=== PATIENT | female | born 1980 | race Two or more races ===

== ENCOUNTER 2020-05-19 11:47 | Outpatient (REF) | payer OTHER, SELFPAY | END 2020-05-19 11:48 | disposition home or self-care (01) | LOC: HO.LAB 11:47 | PROVIDERS: Visit Provider Internal Medicine | DX: Z20.828 Contact with and (suspected) exposure to other viral communicable diseases (principal) | CPT/HCPCS: 87635 ==

== ENCOUNTER 2020-06-11 08:59 | Outpatient (REF) | payer OTHER, SELFPAY ==
[2020-06-11 09:28] LABS: COVID-19 Test Negative (Negative); IDNOW Serial# 55D5AD1C
== END 2020-06-11 09:00 | disposition home or self-care (01) ==
LOC: HO.EMPCOV 08:59
PROVIDERS: Visit Provider Internal Medicine
DX: Z20.828 Contact with and (suspected) exposure to other viral communicable diseases (principal)
CPT/HCPCS: 87635; C9803

== ENCOUNTER 2020-07-26 12:26 | Outpatient (REF) | payer OTHER, SELFPAY ==
[2020-07-26 13:04] LABS: COVID-19 Test Negative (Negative); IDNOW Serial# 55D5AD1C
== END 2020-07-26 12:27 | disposition home or self-care (01) ==
LOC: HO.LAB 12:26
PROVIDERS: Visit Provider Internal Medicine
DX: Z20.828 Contact with and (suspected) exposure to other viral communicable diseases (principal)
CPT/HCPCS: 87635; C9803